=== PATIENT | female | born 1940 | race Caucasian/White ===

== ENCOUNTER 2024-07-15 06:02 | Day surgery (SDC) | payer MEDICARE, OTHER, SELFPAY ==
[2024-06-29 12:31] VITALS: BMI 33.5
[2024-07-15] VITALS (12 sets, daily range): BP systolic 110–137; BP diastolic 64–123
[2024-07-15 06:50] LABS: Glucose - Point of Care 192 mg/dl (70-99)
[2024-07-15 08:40] LABS: ACT-LR - POC 294 Seconds (116-155)
[2024-07-15 08:59] LABS: ACT-LR - POC 290 Seconds (116-155)
[2024-07-15 09:20] LABS: ACT-LR - POC 345 Seconds (116-155)
--- NOTE | 2024-07-15 09:22 | ITS.CL.ABL ---
Salon Assistant - Ablation
Ablation
Procedure Report:
ELECTROPHYSIOLOGY ABLATION STUDY
DATE:: July 15, 2024�����������������������������REFERRING: Dr. Dany Francis
INDICATION: Paroxysmal supraventricular tachycardia in the form of atrial fibrillation.��Also demonstrating atypical atrial flutter on office ECG and presents in atrial flutter today
HISTORY: See H and P.��As above
ANTIARRHYTHMIC DRUG: Diltiazem
PRE-PROCEDURE JOAN: No atrial thrombus on intracardiac ultrasound
PRESENTING RHYTHM: Atrial flutter which was confirmed as typical appearing CTI
'TIME-OUT':��called and confirmed.
SEDATION/ANESTHESIA:��provided via the anesthesia department using general anesthesia (LMA).
INTRAVENOUS/ARTERIAL ACCESS:
Right femoral venous - 8Fr
Left femoral venous - 8 Fr, 6 Fr [id number] suture to bilateral venous sites.
Ultrasound guidance for bilateral femoral vein access was utilized by me to obtain access with demonstration of normal anatomy
CHADS-VASC Score:
HAS-Bled Score
PROCEDURE:
1.��A decapolar CS catheter was placed within the CS for mapping and pacing.��This was also used as the reference catheter for the 3-D map. The patient presented in typical appearing CTI flutter cycle length 250 to 260 ms which was confirmed with
entrainment from the lateral isthmus and the proximal coronary sinus. Entrainment from the CTI proper was also performed with a decapolar catheter and the PFA catheter. Utilizing intracardiac ultrasound guidance and mapping guidance radiofrequency
energy was delivered at the annulus and for the proximal 1 cm towards the annulus at 400 W for 5 seconds. From the midportion of the line at 6:00 to the back and in the IVC PFA was delivered and the patient terminated to sinus rhythm towards the
IVC. Bidirectional block was fashioned intra isthmus conduction time of 130 ms was seen with wide split doubles on the line and pacing for both sides of line demonstrating bidirectional block. We then proceeded to transseptal puncture as below and
ablation of the pulmonary veins and left atrial posterior wall.
2. The intracardiac ultrasound catheter was positioned in the RA to identify the FO for targeting of transseptal puncture, assist��in identification of the pulmonary vein ostia, monitoring pre and post ablation pulmonary vein flow velocities,
monitoring for 'bubble' formation during RF application as a sign of thermal injury,��and to monitor for pericardial effusion during mapping and ablation procedure.���Left atrial size, LV ejection fraction, and pulmonary vein flows were monitored
pre and post ablation procedure. The other valves were inspected and found to be free of significant regurgitation or stenosis.
3.��Half of the calculated heparin bolus was administered prior to the first transeptal puncture.��Transseptal puncture was performed to diagnose RA and LA pressure so that safety of LA mapping and ablation could be further assessed, and to access
the left atrium and pulmonary veins for mapping and ablation.��This entailed advancing an steerable sheath with dilator�RF wire into the superior vena cava and withdrawing both (monitoring intracardiac ultrasound, fluoroscopy and tip pressure) with
the tip oriented toward the atrial septum.��The fossa ovalis was engaged (indicated by sudden displacement of the sheath tip as well as tenting of the fossa seen on intracardiac ultrasound).��Left atrial access required a pass with the [place]
needle extended.��Left atrial catheter position was confirmed by pressure monitoring (RA mean pressure 8 mm Hg and LA mean pressure 14 mm Hg), LA saturation (99%),��as well as fluoroscopy.��The sheath was advanced over the dilator and positioned in
the left atrium.��This procedure was repeated for the Agilis sheath.��The remainder of the calculated heparin bolus was administered and heparin was
infused to maintain ACT at 300 -350 seconds throughout the case.
4.��RA pacing was performed via the proximal decapolar poles and LA pacing was performed via the distal decapolar poles.
5. A quadrapolar catheter was first positioned at the His position for His Bundle recording which was tagged via the 3-D Navex sytem, and then passed to the RVA for RV pacing and recording.
6. The PFA lattice was placed in each of the LIPV, LSPV, RSPV and the RIPV.��
7.��Next, a 3-D map was created using Navex.���A 3-D reconstructed CT image was compared to the 3-D Navex map to assist in anatomic interpretation, mapping and ablation.��The CT image and the NavX image were fused.
8. The pulmonary veins were addressed with wide [place] circumferential ablation in the posterior wall with a roofline, floor line and substrate in the middle of the posterior wall. This was performed with all PFA lesions. Intracardiac guidance
and mapping guidance was utilized. This rendered the pulmonary veins isolated with entrance and exit block in from the roof down to the floor the posterior wall was also isolated with exit block.
EP study post entrance and exit block in all 4 pulmonary veins and the posterior wall demonstrated no other inducible arrhythmias with atrial extrastimuli.
9. An RF line was also placed at the IVC-TVA isthmus to interupt the potential typical atrial flutter circuit.��At the end of RF at this site, pacing from the lateral side of the line and the medial side of the line was performed to evaluate for
bidirectinal block. Intra isthmus conduction time of 130 ms post bidirectional block.
TOTAL FLOURO TIME: 11.6 minutes
TOTAL RF DURATION: 20 seconds
REVERSAL OF HEPARIN: 35 mg of protamine, slow IV administration
COMPLICATIONS:
None
Intracardiac US shows no pericardial effusion post ablation.
SUMMARY:��
Complex left atrial mapping and ablation.
Isolation of all 4 pulmonary veins and left atrial posterior wall. Clinical CTI flutter slowed and terminated with combination of radiofrequency at proximal end and PFA towards the back of the line.
RECOMMENDATIONS:
1. Ambulate in 4 hours
2. Resume anticoagulation
3.��Continue diltiazem
4.��Consider same-day discharge
Copy to: Dr. Dany Francis
[2024-07-15 09:27] LABS: Glucose - Point of Care 182 mg/dl (70-99)
[2024-07-15] MEDS: ANESTHETIC LOZENGE 1 LOZENGE PO (10:12)
[2024-07-15 10:13] LABS: Glucose - Point of Care 199 mg/dl (70-99)
[2024-07-15] MEDS: TYLENOL 650 MG PO (10:39)
--- NOTE | 2024-07-15 14:08 | W.PN.UPDATE ---
Update Note
Progress Note Update
84 yo WF s/p PVI/flutter ablation (same day). She denies cp, sob, mild sore throat and scapular pain from lying flat, EKG SR, b/l groins c/d/i no HT, soft. She will resume Eliquis tonight. She will continue diltiazem daily with pill in pocket PRN.
Activity restrictions reviewed. She will f/u Dr. Francis in 1-2 mo. She is for d/c home after 215 if groins stable.
== END 2024-07-15 14:39 | disposition home or self-care (01) ==
LOC: CATH 06:02
PROVIDERS: ATTENDING PHYSICIAN Internal Medicine Cardiovascular Disease; FAMILY PHYSICIAN Internal Medicine; OTHER PHYSICIAN Internal Medicine Cardiovascular Disease
DX: I48.0 Paroxysmal atrial fibrillation (principal); I48.4 Atypical atrial flutter; I47.19 Other supraventricular tachycardia; E11.9 Type 2 diabetes mellitus without complications; I27.20 Pulmonary hypertension, unspecified; I10 Essential (primary) hypertension; E78.5 Hyperlipidemia, unspecified; I65.21 Occlusion and stenosis of right carotid artery; I73.9 Peripheral vascular disease, unspecified; R55 Syncope and collapse; I83.90 Asymptomatic varicose veins of unspecified lower extremity; I08.1 Rheumatic disorders of both mitral and tricuspid valves; Z96.41 Presence of insulin pump (external) (internal); R13.10 Dysphagia, unspecified; A42.9 Actinomycosis, unspecified; H40.9 Unspecified glaucoma; E66.9 Obesity, unspecified; Z68.33 Body mass index [BMI] 33.0-33.9, adult; M54.10 Radiculopathy, site unspecified; Z79.899 Other long term (current) drug therapy; Z79.01 Long term (current) use of anticoagulants; Z79.4 Long term (current) use of insulin; Z96.611 Presence of right artificial shoulder joint; Z88.8 Allergy status to other drugs, medicaments and biological substances
CPT/HCPCS: C1894; C1730; C1766; C1892; C1759; C1733; 82962; 85347; 86900; 86901; 93005; 93655; 93656; 93657